=== PATIENT | female | born 1990 | race Caucasian/White ===

== ENCOUNTER 2024-10-22 15:55 | Emergency (ER) | payer BC ==
[~2024-10-22] VITALS: Ht 157.5 cm; Wt 69.8 kg
[2024-10-22] MEDS ORDERED: BIRTH CONTROL (16:18)
[2024-10-22] MEDS ORDERED: Diphth,Pertuss(Acell),Tet Vac 0.5 ML VIAL IM ONE (16:30)
[2024-10-22] MEDS ORDERED: HYDROmorphone HCl/Pf 1MG SYR IV ONE ×2 (17:00→18:20)
[2024-10-22 17:44] LABS: BASOPHILS ABSOLUTE AUTO 0.06 K/mm3 (0.00-0.23); BASOPHILS PERCENT AUTO 1 % (0-2); EOSINOPHILS ABSOLUTE AUTO 0.03 K/mm3 (0.00-0.68); EOSINOPHILS PERCENT AUTO 0 % (0-6); Hematocrit 38.3 % (33.0-51.0); Hemoglobin 13.3 g/dL (11.5-16.0); IMMATURE GRAN ABSOLUTE AUTO 0.01 K/mm3 (0.00-0.10); IMMATURE GRAN PERCENT AUTO 0 % (0-1); LYMPHOCYTES ABSOLUTE AUTO 1.81 K/mm3 (0.84-5.20); LYMPHOCYTES PERCENT AUTO 24 % (21-46); MONOCYTES ABSOLUTE AUTO 0.45 K/mm3 (0.16-1.47); MONOCYTES PERCENT AUTO 6 % (4-13); Mean Corpuscular HGB 32.5 pg (26.0-34.0); Mean Corpuscular HGB Conc 34.7 g/dL (31.5-36.5); Mean Corpuscular Volume 94 fL (80-100); Mean Platelet Volume 9.4 fL (9.1-12.4); NEUTROPHILS ABSOLUTE AUTO 5.19 K/mm3 (1.96-9.15); NEUTROPHILS PERCENT AUTO 69 % (41-73); Platelet Count 288 K/mm3 (150-400); RDW Coefficient Variation 11.8 % (11.7-14.2); RDW Standard Deviation 40.2 fL (35.1-46.3); Red Blood Cell Count 4.09 M/mm3 (3.80-5.20); White Blood Cell Count 7.55 K/mm3 (4.00-11.30)
[2024-10-22 18:00] VITALS: BP 134/89
[2024-10-22 18:08] LABS: Albumin, Blood 3.8 g/dL (3.4-5.0); Albumin/Globulin Ratio 1.1 (0.8-1.8); Bilirubin, Total 0.3 mg/dL (0.1-1.0); Bun/Creatinine Ratio 13.1 (12.0-20.0); Calcium, Blood 8.9 mg/dL (8.5-10.1); Creatinine, Blood 0.76 mg/dL (0.40-1.00); Globulin, Blood 3.4 g/dL (2.2-4.0); Potassium, Blood 3.8 mmol/L (3.5-5.5); Total Protein, Blood 7.2 g/dL (6.4-8.2)
[2024-10-22] MEDS ORDERED: CEPH500 PO (19:37)
[2024-10-22] MEDS ORDERED: OXAYDO5 M1 PO (19:37)
[2024-10-22] MEDS ORDERED: RX Prepack 6 Tabs Oxycodone 5mg UD ONE (19:50)
== END 2024-10-22 20:15 | disposition home or self-care (01) ==
LOC: ER 15:55
PROVIDERS: Student in an Organized Health Care Education/Training Program
DX: S87.82XA Crushing injury of left lower leg, initial encounter (principal); S81.812A Laceration without foreign body, left lower leg, initial encounter; X58.XXXA Exposure to other specified factors, initial encounter; Z23 Encounter for immunization
CPT/HCPCS: 73590; 80053; 85025; 90715; A9270; J1171